=== PATIENT | male | born 1970 | race Caucasian/White ===

== ENCOUNTER 2018-03-31 16:03 | Emergency (ER) | payer SELFPAY ==
[~2018-03-31] VITALS: Ht 175.3 cm; Wt 152.4 kg
[2018-03-31] MEDS ORDERED: IV NORMAL SALINE 1,000ML 1,000 ML IV ONE (16:30)
[2018-03-31 16:41] LABS: BASO # 0.1 x10^3/uL (0.0-0.2); BASO % 1 % (0-3); EOS # 0.5 x10^3/uL (0.0-0.7); EOS % 5 % (0-3); HEMATOCRIT 42.1 % (39.0-53.0); HEMOGLOBIN 14.1 g/dL (13.0-17.5); LYMPH # 3.2 x10^3/uL (1.0-4.8); LYMPH % 27 % (24-48); MEAN CORPUSCULAR HEMOGLOBIN 28 pg (25-35); MEAN CORPUSCULAR HGB CONC 34 g/dL (31-37); MEAN CORPUSCULAR VOLUME 84 fL (79-100); MONO # 0.7 x10^3/uL (0.0-1.1); MONO % 6 % (0-9); NEUT # 7.3 x10^3uL (1.8-7.7); NEUT % 61 % (31-73); PLATELET COUNT 262 x10^3/uL (140-400); RED BLOOD COUNT 4.98 x10^6/uL (4.30-5.70); RED CELL DISTRIBUTION WIDTH 13.7 % (11.5-14.5); WHITE BLOOD COUNT 11.8 x10^3/uL (4.0-11.0)
--- NOTE | 2018-03-31 16:43 | EKG ---
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
[2018-03-31 16:51] LABS: ALBUMIN 3.3 g/dL (3.4-5.0); ALBUMIN/GLOBULIN RATIO 0.9 (1.0-1.7); CALCIUM 8.8 mg/dL (8.5-10.1); GFR 80.8; POTASSIUM 4.1 mmol/L (3.5-5.1); TOTAL BILIRUBIN 0.3 mg/dL (0.2-1.0); TOTAL PROTEIN 6.8 g/dL (6.4-8.2)
--- NOTE | 2018-03-31 17:26 | ED.ADGEN ---
Past History Past Medical History: Diabetes, GERD, Other Past Surgical History: Other Alcohol Use: Occasionally Drug Use: None Adult General Chief Complaint Chief Complaint Dizziness HPI HPI Patient is a 47-year-old male with history of type 2 diabetes and diabetic neuropathy who presents with dizziness and difficulty with balance. Patient reports subtle blurring of vision. Symptom onset was morning upon waking. Patient denies headache, loss of visual mary, slurred speech, focal extremity weakness or loss of sensation. No chest pain shortness of breath palpitations. No fever chills, nausea vomiting or sweats. No vomiting or diarrhea. Patient states blood sugars have been elevated more than normal. Patient takes metformin and glipizide. He states his blood sugars are typically in the 150- 200 range. Today's blood sugars were in the 200 low 300 range. Patient took an additional dose of metformin prior to ED arrival. Patient states he started on gabapentin in the past 10 days and I treated to a full dose 3 days ago. Denies drugs and alcohol. [] Review of Systems Review of Systems ROS as per HPI. [] All other systems were reviewed and found to be within normal limits, except as documented in this note. Current Medications Current Medications Current Medications Medications (Trade) Dose Ordered Sig/Peg Start Time Stop Time Status Last Admin Dose Admin Sodium Chloride 1,000 ml @ 1,000 mls/hr 1X ONCE 03/31/18 16:30 03/31/18 17:29 03/31/18 16:31 1,000 MLS/HR Allergies Allergies Allergies Coded Allergies Type Severity Reaction Last Updated Verified No Known Drug Allergies 08/20/17 No Physical Exam Physical Exam Constitutional: Well developed, well nourished, no acute distress, non-toxic appearance. [] HENT: Normocephalic, atraumatic, bilateral external ears normal, oropharynx moist, nose normal. [] Eyes: PERRLA, EOMI. [] Neck: Normal range of motion, no tenderness, supple, no stridor. [] Cardiovascular:Heart rate regular rhythm, no murmur [] Lungs & Thorax: Bilateral breath sounds clear to auscultation [] Abdomen: Bowel sounds normal, soft, no tenderness. [] Skin: Warm, dry. [] Back: No tenderness. [] Extremities: No tenderness. [] Neurologic: Alert and oriented X 3, normal motor function, normal sensory function, no focal deficits noted. [] Psychologic: Affect normal, judgement normal, mood normal. [] Current Patient Data Vital Signs Vital Signs Date Time Temp Pulse Resp B/P (MAP) Pulse Ox O2 Delivery O2 Flow Rate FiO2 03/31/18 17:12 88 18 125/88 (100) 98 Room Air 03/31/18 16:05 97.6 Lab Results Laboratory Tests Test 03/31/18 16:11 03/31/18 16:27 Glucose (Fingerstick) 263 mg/dL (70-99) H White Blood Count 11.8 x10^3/uL (4.0-11.0) H Red Blood Count 4.98 x10^6/uL (4.30-5.70) Hemoglobin 14.1 g/dL (13.0-17.5) Hematocrit 42.1 % (39.0-53.0) Mean Corpuscular Volume 84 fL (79-100) Mean Corpuscular Hemoglobin 28 pg (25-35) Mean Corpuscular Hemoglobin Concent 34 g/dL (31-37) Red Cell Distribution Width 13.7 % (11.5-14.5) Platelet Count 262 x10^3/uL (140-400) Neutrophils (%) (Auto) 61 % (31-73) Lymphocytes (%) (Auto) 27 % (24-48) Monocytes (%) (Auto) 6 % (0-9) Eosinophils (%) (Auto) 5 % (0-3) H Basophils (%) (Auto) 1 % (0-3) Neutrophils # (Auto) 7.3 x10^3uL (1.8-7.7) Lymphocytes # (Auto) 3.2 x10^3/uL (1.0-4.8) Monocytes # (Auto) 0.7 x10^3/uL (0.0-1.1) Eosinophils # (Auto) 0.5 x10^3/uL (0.0-0.7) Basophils # (Auto) 0.1 x10^3/uL (0.0-0.2) Sodium Level 139 mmol/L (136-145) Potassium Level 4.1 mmol/L (3.5-5.1) Chloride Level 101 mmol/L (98-107) Carbon Dioxide Level 25 mmol/L (21-32) Anion Gap 13 (6-14) Blood Urea Nitrogen 14 mg/dL (8-26) Creatinine 1.0 mg/dL (0.7-1.3) Estimated GFR (Cockcroft-Gault) 80.8 BUN/Creatinine Ratio 14 (6-20) Glucose Level 266 mg/dL (70-99) H Calcium Level 8.8 mg/dL (8.5-10.1) Magnesium Level 1.7 mg/dL (1.8-2.4) L Total Bilirubin 0.3 mg/dL (0.2-1.0) Aspartate Amino Transferase (AST) 14 U/L (15-37) L Alanine Aminotransferase (ALT) 33 U/L (16-63) Alkaline Phosphatase 125 U/L (46-116) H Troponin I Quantitative < 0.017 ng/mL (0-0.055) Total Protein 6.8 g/dL (6.4-8.2) Albumin 3.3 g/dL (3.4-5.0) L Albumin/Globulin Ratio 0.9 (1.0-1.7) L EKG EKG [EKG: Normal sinus rhythm, no acute ST-T wave changes.] Radiology/Procedures Radiology/Procedures [] Course & Med Decision Making Course & Med Decision Making Pertinent Labs and Imaging studies reviewed. (See chart for details) [No focal neurologic deficits. Vital signs are stable. IV fluids given. Blood sugar 266. Suspect symptoms are rated medication and recent increase in gabapentin. Recommend tapering/discontinuing gabapentin and following up with PCP for further evaluation. Return precautions reviewed.] Final Impression Final Impression [1. Dizziness 2. Hyperglycemia 3. Adverse drug reaction ] Dragperfecto Disclaimer Dragon Disclaimer This electronic medical record was generated, in whole or in part, using a voice recognition dictation system. ANNALISE ASTUDILLO DO March 31, 2018 17:26
[2018-03-31 17:52] VITALS: BP 136/81
[2018-03-31 17:52] LABS: BILIRUBIN,URINE NEG (NEG); CLARITY,URINE CLEAR; COLOR,URINE YELLOW; GLUCOSE,URINE 250 mg/dL (NEG); NITRITE,URINE NEG (NEG); UROBILINOGEN,URINE 0.2 mg/dL (0.2 mg/dL)
== END 2018-03-31 17:56 | disposition home or self-care (01) ==
LOC: ER 16:03
DX: E11.65 Type 2 diabetes mellitus with hyperglycemia (principal); T38.3X5A Adverse effect of insulin and oral hypoglycemic [antidiabetic] drugs, initial encounter; E11.40 Type 2 diabetes mellitus with diabetic neuropathy, unspecified; K21.9 Gastro-esophageal reflux disease without esophagitis; Y92.89 Other specified places as the place of occurrence of the external cause
CPT/HCPCS: 36415; 80053; 81003; 82947; 83735; 84484; 85025; 93005; 96360; 99285-25; J7030

== ENCOUNTER → 2018-05-17 | Outpatient (CLI) | payer OTHER ==
--- NOTE | 2018-05-17 10:19 | RAD ---
Lumbar spine, 3 views, 05/17/2018: HISTORY: Low back pain radiating into both legs The lumbar vertebral heights and disc spaces are well-maintained. There are mild scattered marginal spurs. There is moderate spurring in the lower thoracic spine. No fracture or dislocation is identified. Tiny radiopacities projected over the renal regions suggests small intrarenal calculi. IMPRESSION: 1. Mild scattered degenerative changes. 2. No acute lumbar spine abnormality is detected. Electronically signed by: Diaz Bone MD (05/17/2018 10:16 AM) [facility]
== END | disposition home or self-care (01) ==
LOC: DXRAD 09:13
PROVIDERS: ATTEND Internal Medicine Infectious Disease
DX: M54.5 Low back pain (principal); E11.65 Type 2 diabetes mellitus with hyperglycemia; K21.9 Gastro-esophageal reflux disease without esophagitis
CPT/HCPCS: 72100

== ENCOUNTER 2018-07-11 10:38 | Emergency (ER) | payer MEDICAID, OTHER ==
[~2018-07-11] VITALS: Ht 175.3 cm; Wt 154.2 kg
[2018-07-11 10:57] VITALS: BP 145/95
--- NOTE | 2018-07-11 11:17 | PHYS DOC ---
Past History Past Medical History: Diabetes, GERD Past Surgical History: Other Alcohol Use: None Drug Use: None Adult General Chief Complaint Chief Complaint: EARACHE/EAR PAIN HPI HPI She is a 47-year-old male who presents to the emergency department for evaluation. He has had left-sided ear pain for the past week or so. He states that he initially had some bleeding and drainage out of his ear. He saw his primary care provider, who prescribed eardrops, the patient is uncertain which ones, and they were brought to the local [facility] pharmacy but they have been on back order, so the patient has not received any medication. He states his ear pain is worsened. He has not had any fevers, and has not had a headache. He has had decreased hearing out of his left ear. He is also developed some mild nasal congestion and a cough over the past few days. Palpation of his left ear seems to worsen his pain. He denies any shortness of breath, chest pain, myalgias, fever, denies a global headache, and denies any neck pain or stiffness. His mental status has been normal. There are no alleviating, or exacerbating factors to his symptoms, except as otherwise noted. Review of Systems Review of Systems Constitutional: Denies fever or chills [] Eyes: Denies change in visual acuity, redness, or eye pain [] HENT: Denies sore throat [] Respiratory: Denies or shortness of breath [] Cardiovascular: The patient denies any shortness of breath, chest pain, palpitations, or orthopnea [] GI: Denies abdominal pain, nausea, vomiting, bloody stools or diarrhea [] : Denies dysuria or hematuria [] Musculoskeletal: Denies back pain or joint pain [] Integument: Denies rash or skin lesions [] Neurologic: Denies headache, focal weakness or sensory changes [] Endocrine: Denies polyuria or polydipsia [] Allergies Allergies Allergies Coded Allergies Type Severity Reaction Last Updated Verified No Known Drug Allergies 08/20/17 No Physical Exam Physical Exam PHYSICAL EXAM: CONSTITUTIONAL: Well developed, well nourished HEAD: normocephalic, atraumatic EENT: PERRL, EOMI. Conjunctivae normal color, sclerae non-icteric; moist mucous membranes. The right external auditory canal and tympanic membrane are normal. The left tympanic membrane is edematous, to the point that an otoscope is unable to be inserted in the tympanic membrane is unable to be visualized. There is tragal tenderness to palpation. There is no visible abnormalities of the skin of the auricle, and there is no mastoid tenderness to palpation. NECK: Supple, non-tender; no meningismus. LUNGS: Lungs CTA, breathing even and unlabored. Normal air movement. HEART: Regular rate and rhythm, no murmur CHEST: No deformity; non-tender ABDOMEN: The abdomen is soft, and non-tender, no masses or bruits. EXTREM: Normal ROM; no deformity, no calf tenderness. Normal pulses palpable in all extremities. There is no pedal edema. SKIN: No rash; no diaphoresis NEURO: Alert; normal speech and cognition; CN's grossly intact; strength grossly intact without focal deficit. BACK: No CVA TTP. Current Patient Data Vital Signs Vital Signs Date Time Temp Pulse Resp B/P (MAP) Pulse Ox O2 Delivery O2 Flow Rate FiO2 07/11/18 10:57 98.2 92 22 97 Room Air Lab Results Laboratory Tests Test 07/11/18 11:05 Glucose (Fingerstick) 156 mg/dL EKG EKG [] Radiology/Procedures Radiology/Procedures [] Course & Med Decision Making Course & Med Decision Making The patient be given an additional prescription for otic drops as well as oral antibiotics to cover for the possibility of otitis media due to the upper respiratory symptoms and inability to visualize the left tympanic membrane. I instructed the patient to bring the prescription to a different pharmacy, and less his local pharmacy has the medication on hand, so he can begin taking the medication today. We discussed the use of [id number] analgesics and return precautions. The patient will be given hand written prescriptions for Cortisporin Otic solution, and clindamycin 300 mg tablets, 3 times a day for 10 days. Dragon Disclaimer Dragon Disclaimer This electronic medical record was generated, in whole or in part, using a voice recognition dictation system. Departure Departure: Impression: Primary Impression: Otitis externa Disposition: 01 HOME, SELF-CARE Condition: STABLE Referrals: FERNANDO VIVEROS MD (PCP) Patient Instructions: Otitis Externa LAUREL JARVIS MD Jul 11, 2018 11:17
== END 2018-07-11 11:36 | disposition home or self-care (01) ==
LOC: ER 10:38
DX: H60.92 Unspecified otitis externa, left ear (principal); E11.9 Type 2 diabetes mellitus without complications; K21.9 Gastro-esophageal reflux disease without esophagitis
CPT/HCPCS: 82947; 99283

== ENCOUNTER 2018-11-06 05:11 | Emergency (ER) | payer MEDICAID, OTHER ==
[~2018-11-06] VITALS: Ht 175.3 cm; Wt 152.0 kg
--- NOTE | 2018-11-06 05:23 | PHYS DOC ---
Past History Past Medical History: Diabetes, GERD Past Surgical History: Other Alcohol Use: None Drug Use: None Adult General Chief Complaint Chief Complaint: Right ankle pain/swelling HPI HPI 48-year-old male presents with report of right ankle pain and swelling which occurred at approximately 2200 last night. Patient reports he went to step on a wooden pallet and missed the board and instead stepped between striking his ankle on the sides of the palate. Patient reports significant swelling and pain primarily to the lateral aspect. Reports pain with movement. Patient did sustain some abrasions to his lateral aspect of ankle and to his heel. Denies other injury. Reports last tetanus booster greater than 5 years ago. Reports taking ibuprofen approximately 1 hour prior to arrival with limited relief. Review of Systems Review of Systems Constitutional: Denies fever or chills [] Musculoskeletal: Reports right ankle pain Integument: Denies laceration; reports ankle abrasions Neurologic: Denies numbness or tingling Complete systems were reviewed and found to be within normal limits, except as documented in this note. Allergies Allergies Allergies Coded Allergies Type Severity Reaction Last Updated Verified No Known Drug Allergies 08/20/17 No Physical Exam Physical Exam Constitutional: Well developed, well nourished, no acute distress, non-toxic appearance. [] HENT: Normocephalic, atraumatic Eyes: Conjunctiva normal, no discharge. [] Neck: Normal range of motion, supple Cardiovascular: PT/DP on right +2, cap refill less than 2 seconds Lungs & Thorax: No respiratory distress Skin: Warm, dry, 2 cm x 2 cm abrasion noted to lateral malleolus on right ankle , 1 cm abrasion noted to right calcaneus Extremities: Right ankle with negative drawer sign, significant swelling and tenderness to lateral malleolus, no proximal fibular tenderness or tibial plateau tenderness Neurologic: Alert and oriented X 3, no focal deficits noted. [] Psychologic: Affect normal, judgement normal, mood normal. [] EKG EKG [] Radiology/Procedures Radiology/Procedures Right ankle 3 views (preliminary interpretation by ED physician): No acute fracture or dislocation. Course & Med Decision Making Course & Med Decision Making Pertinent Imaging studies reviewed. (See chart for details) Patient presents with right lateral ankle swelling and tenderness which occurred last night. Limb neurovascularly intact. Pain addressed. Ice applied. X -ray obtained without acute fracture or dislocation. Ulices wrap and ankle air splint applied. Crutches provided. Patient stable for discharge with outpatient follow-up with PCP/orthopedics. Orthopedic referral provided. Discussed findings and plan with patient and family, who acknowledge understanding and agreement. Bhavna Disclaimer Bhavna Disclaimer This electronic medical record was generated, in whole or in part, using a voice recognition dictation system. Splinting Splinting : Location: Right ankle Pre-Made Type: aircast (and ULICES bandage) Pre-Proc Neuro Vasc Exam: normal Post-Proc Neuro Vasc Exam: normal, unchanged from pre-exam Departure Departure: Impression: Primary Impression: Ankle sprain Additional Impression: Abrasion Disposition: HOME, SELF-CARE Condition: STABLE Referrals: FERNANDO VIVEROS MD (PCP) DEVORA ARRIAGA MD Patient Instructions: Abrasion, [id number], Ankle Sprain, [id number], Crutch Use, [id number] Scripts Hydrocodone Bit/Acetaminophen (NORCO 5-325 TABLET) 1 Each Tablet 1 TAB PO Q6HRS PRN for PAIN, #10 TAB Prov: GIOVANY ROBERTS DO 11/06/18 Problem Qualifiers Primary Impression: Ankle sprain Encounter type: initial encounter Involved ligament of ankle: unspecified ligament Laterality: right Qualified Codes: S93.401A - Sprain of unspecified ligament of right ankle, initial encounter GIOVANY ROBERTS DO Nov 06, 2018 05:23
[2018-11-06] MEDS ORDERED: HYDR-3165 PO (05:52)
[2018-11-06] MEDS ORDERED: HYDROcodone/APAP 5/325MG 1 TAB TABLET ONE (05:52)
[2018-11-06] MEDS ORDERED: DIPHTH,PERTUSS(ACELL),TET TOX 0.5 ML DISP.SYRIN. VAX IM ONE ×2 (05:52→06:00)
[2018-11-06] MEDS ORDERED: NEOMY/BACITR/POLYMYXIN OINT PACKET. TP ONE ×2 (05:52→06:00)
[2018-11-06] MEDS ORDERED: HYDROcodone/APAP 5/325MG 1 TAB TABLET PO ONE (06:00)
[2018-11-06 06:25] VITALS: BP 122/60
--- NOTE | 2018-11-06 07:34 | RAD ---
Examination: ANKLE RIGHT 3V History: Injury to right ankle last night. Stepped in between boards of a pallet causing laceration, pain and swelling to right lateral malleolus. Comparison/Correlation: None Findings: Total 3 images of the right ankle were obtained. Significant soft tissue swelling anterior to the ankle is present. Soft tissue swelling about the lateral malleolus is also present. No acute fracture or bony destruction. Moderate-sized calcaneal spur is present. No radiopaque foreign body. Impression: Soft tissue swelling. Electronically signed by: Kaushik Beyer MD (11/06/2018 7:30 AM) [facility] [place]
== END 2018-11-06 06:26 | disposition home or self-care (01) ==
LOC: ER 05:11
DX: S93.401A Sprain of unspecified ligament of right ankle, initial encounter (principal); E11.9 Type 2 diabetes mellitus without complications; K21.9 Gastro-esophageal reflux disease without esophagitis; W22.8XXA Striking against or struck by other objects, initial encounter; Y93.89 Activity, other specified; Y92.89 Other specified places as the place of occurrence of the external cause; Y99.8 Other external cause status
CPT/HCPCS: 73610; 90471; 90715; 99284

== ENCOUNTER 2020-10-18 10:57 | Emergency (ER) | payer OTHER ==
[~2020-10-18] VITALS: Ht 177.8 cm; Wt 126.0 kg
[~2020-10-18 10:57] MED LIST: HYDR-3165 PO
[2020-10-18 11:00] VITALS: BP 137/82
--- NOTE | 2020-10-18 11:14 | PHYS DOC ---
Past History Past Medical History: Diabetes, GERD, Hypertension, Kidney Stones, Other Past Surgical History: Other Alcohol Use: Occasionally Drug Use: Marijuana General Adult EDM: Chief Complaint: ANXIETY/PANIC ATTACK HPI: HPI: 50-year-old male past medical history significant for diabetes, htn and GERD presents to the ED with complaints of Review of Systems: Review of Systems: Constitutional: Denies fever or chills Eyes: Denies change in visual acuity HENT: Denies nasal congestion or sore throat Respiratory: Denies cough or shortness of breath Cardiovascular: Denies chest pain or edema GI: Denies abdominal pain, nausea, vomiting, bloody stools or diarrhea : Denies dysuria Musculoskeletal: Denies back pain or joint pain Integument: Denies rash Neurologic: Denies headache, focal weakness or sensory changes Endocrine: Denies polyuria or polydipsia Lymphatic: Denies swollen glands Psychiatric: Denies depression or anxiety Allergies: Allergies: Allergies Coded Allergies Type Severity Reaction Last Updated Verified lisinopril Allergy Intermediate Hives 11/06/18 Yes Physical Exam: PE: Constitutional: Well developed, well nourished, no acute distress, non-toxic appearance. HENT: Normocephalic, atraumatic, Eyes: EOMI, conjunctiva normal, no discharge. Neck: Normal range of motion, supple, Cardiovascular: S1/2 present, regular rhythm Lungs & Thorax: Speaking in full sentences, bilateral equal chest rise, no tachypnea or increased work of breathing Abdomen: soft, no tenderness, Skin: Warm, dry, no erythema, no rash. [] Back: No tenderness, no CVA tenderness. [] Extremities: No tenderness, no cyanosis, no edema Neurologic: Alert and oriented X 3, normal motor function, normal sensory function, no focal deficits noted. [] Psychologic: Affect normal, judgement normal, mood normal. [] EKG: EKG: Sinus rhythm at 68 bpm, left axis deviation, normal intervals, no T wave inversions, no ST elevations or ST depressions Radiology/Procedures: Radiology/Procedures: [] Heart Score: HEART Score for Chest Pain: HEART Score for Chest Pain Response (Comments) Value History Slighlty/Non-Suspicious 0 ECG Normal 0 Age >45 - < 65 1 Risk Factors 1 or 2 Risk Factors 1 Troponin < Normal Limit 0 Total 2 Risk Factors: Risk Factors: DM, Current or recent (<one month) smoker, HTN, HLP, family history of CAD, obesity. Risk Scores: Score 0 - 3: 2.5% MACE over next 6 weeks - Discharge Home Score 4 - 6: 20.3% MACE over next 6 weeks - Admit for Clinical Observation Score 7 - 10: 72.7% MACE over next 6 weeks - Early Invasive Strategies Course & Med Decision Making: Course & Med Decision Making Pertinent Labs and Imaging studies reviewed. (See chart for details) Strict ED return precautions were given for []. Encouraged urgent outpatient follow-up with PMD and [specialist]. Life-threatening processes were considered but are low suspicion at this time, given history and physical exam. Pt was educated on all prescription medications and adverse effects. All patient's questions were answered and pt was stable at time of discharge. Life/limb-threatening differential includes but is not limited to, acute myocardial infarction, aortic dissection, congestive heart failure, esophageal injury including rupture, surgical abdomen, arrhythmia, cardiomyopathy, myocarditis, pericarditis, peptic ulcer disease, pneumomediastinum, pneumonia, pneumothorax, pulmonary embolus, unstable angina, rib fracture, contusion, pericardial tamponade or effusion, pulmonary contusion I spoken with the patient and her caregivers. I explained the patient's condition, diagnoses and treatment plan based on the information available to me at this time. I have answered the patient and her caregiver's questions and addressed any concerns. The patient and her caregivers have a good understanding of patient's diagnosis, condition and treatment plan as can be expected at this point. Vital signs have been stable. Patient's condition is stable and appropriate for discharge from the emergency department. Patient will pursue further outpatient evaluation with primary care physician or other designated or consulting physician as outlined in the discharge instructions. The patient and/or caregivers are agreeable to this plan of care and follow-up instructions have been explained in detail. The patient and/or caregivers have received these instructions in written form and have expressed an understanding of the discharge instructions. The patient and/or caregivers are aware that any significant change of condition or worsening of symptoms should prompt immediate return to this or the closest emergency department or call to 911. Bhavna Disclaimer: Bhavna Disclaimer: This electronic medical record was generated, in whole or in part, using a voice recognition dictation system. Departure Departure: Impression: Primary Impression: Anxiety and depression Additional Impression: Panic attacks Disposition: 01 DC HOME SELF CARE/HOMELESS Condition: STABLE Referrals: FERNANDO VIVEROS MD (PCP) Patient Instructions: Anxiety and Panic Attacks, Chest Pain (Nonspecific) Additional Instructions: EMERGENCY DEPARTMENT GENERAL DISCHARGE INSTRUCTIONS Thank you for coming to [facility] (ED) today and trusting us with you care. We trust that you had a positivie experience in our Emergency Department. If you wish to speak to the department management, you may call the director at [phone]. YOUR FOLLOW UP INSTRUCTIONS ARE FOLLOWS: 1. Do you have a private Doctor? If you do not have a private doctor, please ask for a resource list of physicians or clinics that may be able to assist you with follow up care. 2. The Emergency Physician has interpreted your x-rays. The X-Ray specialist will also review them. If there is a change in the findings, you will be notified in 48 hours when at all possible. 3. A lab test or culture has been done, your results will be reviewed and you will be notified if you need a change in treatment. ADDITIONAL INSTRUCTIONS AND INFORMATION: 1. Your care today has been supervised by a physician who is specially trained in emergency care. Many problems require more than one evaluation for a complete diagnosis and treatment. We recommend that you schedule your follow up appointment as recommended to ensure complete treatment of you illness or injury. If you are unable to obtain follow up care and continue to have a problem, or if your condition worsens, we recommend that you return to the ED. 2. We are not able to safely determine your condition over the phone nor are we able to give sound medical advice over the phone. For these safety reasons, if you call for medical advice we will ask you to come to the ED for further evaluation. 3. If you have any questions regarding these discharge instructions please call the ED at [phone]. SAFETY INFORMATION: In the interest of safety, wellness, and injury prevention; we encourage you to wear your sealbelt, if you smoke; quite smoking, and we encourage family to use a protective helmet for bicycling and other sporting events that present an increased risk for head injury. IF YOUR SYMPTOMS WORSEN OR NEW SYMPTOMS DEVELOP, OR YOU HAVE CONCERNS ABOUT YOUR CONDITION; OR IF YOUR CONDITION WORSENS WHILE YOU ARE WAITING FOR YOUR FOLLOW UP APPOINTMENT; EITHER CONTACT YOUR PRIMARY CARE DOCTOR, THE PHYSICIAN WHOSE NAME AND NUMBER YOU WERE GIVEN, OR RETURN TO THE ED IMMEDIATELY. Scripts Hydroxyzine Hcl (HYDROXYZINE HCL) 25 Mg Tablet 1 TAB PO PRN BID PRN for ANXIETY / AGITATION, #20 TAB 0 Refills Be careful as this medication may make you mildly tired. I recommend not driving on this medication or operating heavy machinery. Prov: JAMESON DUMONT DO 10/18/20 JAMESON DUMONT DO Oct 18, 2020 11:14
[2020-10-18] MEDS ORDERED: ALPRAZolam 0.25 MG TABLET PO ONE (12:00)
[2020-10-18 12:38] LABS: BASO # 0.1 x10^3/uL (0.0-0.2); BASO % 1 % (0-3); EOS # 0.5 x10^3/uL (0.0-0.7); EOS % 4 % (0-3); HEMOGLOBIN 15.4 g/dL (13.0-17.5); LYMPH # 2.5 x10^3/uL (1.0-4.8); LYMPH % 18 % (24-48); MEAN CORPUSCULAR HEMOGLOBIN 30 pg (25-35); MEAN CORPUSCULAR HGB CONC 33 g/dL (31-37); MEAN CORPUSCULAR VOLUME 92 fL (79-100); MONO # 0.7 x10^3/uL (0.0-1.1); MONO % 5 % (0-9); NEUT # 10.2 x10^3uL (1.8-7.7); NEUT % 73 % (31-73); PLATELET COUNT 240 x10^3/uL (140-400); RED BLOOD COUNT 5.13 x10^6/uL (4.30-5.70); RED CELL DISTRIBUTION WIDTH 14.2 % (11.5-14.5); WHITE BLOOD COUNT 13.9 x10^3/uL (4.0-11.0)
[2020-10-18 12:39] LABS: CALCIUM 9.4 mg/dL (8.5-10.1); CREATININE 0.8 mg/dL (0.7-1.3); GFR 103.2; POTASSIUM 4.3 mmol/L (3.5-5.1)
[2020-10-18] MEDS ORDERED: HYDR25TA PO (13:32)
--- NOTE | 2020-10-18 13:34 | RAD ---
INDICATION: Reason: cp / Spl. Instructions: / History: COMPARISON: September 2009 FINDINGS: 2 view of chest obtained. No focal airspace consolidation. Cardiac silhouette is unremarkable. No gross osseous destructive les ion IMPRESSION: * No focal airspace consolidation or edema. Electronically signed by: Shaheed Reyes MD (10/18/2020 12:29 PM) [id number]
--- NOTE | 2020-10-18 13:34 | EKG ---
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
== END 2020-10-18 13:38 | disposition home or self-care (01) ==
LOC: ER 10:57
DX: F41.9 Anxiety disorder, unspecified (principal); F32.9 Major depressive disorder, single episode, unspecified; E11.9 Type 2 diabetes mellitus without complications; K21.9 Gastro-esophageal reflux disease without esophagitis; I10 Essential (primary) hypertension; Z87.442 Personal history of urinary calculi; Z88.8 Allergy status to other drugs, medicaments and biological substances
CPT/HCPCS: 36415; 71046; 80048; 84484; 85025; 93005; 99285

== ENCOUNTER 2021-12-16 06:42 | Emergency (ER) | payer SELFPAY ==
[~2021-12-16] VITALS: Ht 170.2 cm; Wt 132.8 kg
[~2021-12-16 06:42] MED LIST changes: +HYDR25TA PO
--- NOTE | 2021-12-16 07:49 | PHYS DOC ---
Past History Past Medical History: Anxiety, Diabetes, GERD, Hypertension, Kidney Stones, Other Additional Past Medical Histor: COMANCHE Past Surgical History: Other Additional Past Surgical Histo: WOUND VAC, EAR SURGERY, KIDNEY STONES. Alcohol Use: None Drug Use: Marijuana Adult General Chief Complaint Chief Complaint: CHEST PAIN HPI HPI Patient is a 51-year-old male presenting via POV for chest tightness. Reports symptom onset was yesterday evening while at rest, states he felt like he had a "gas bubble" in his chest that was relieved after taking x2 gas pills. States he was able to sleep without issue but after waking up, he reported recurrence of symptoms with associated chest tightness. Reports that physical exertion made worse, he got ready for work, walked 3 minutes to work and while performing daily duties on the job he got winded, diaphoretic and nauseous with increased chest tightness. This prompted him to call and subsequently 911 who advised patient to come in for evaluation. He has no personal history of CAD but does disclose he has numerous comorbid conditions which he admits poor medication compliance in outpatient setting for. Admits ongoing marijuana and tobacco abuse, no alcohol or other illicit drug use. No history of early cardiac disease in family. Does disclose he has had approximately 1 week of upper respiratory symptoms and is unvaccinated against COVID-19 Review of Systems Review of Systems Fourteen body systems of review of systems have been reviewed. See HPI for pertinent positives and negative responses, other cub[place] all other systems are negative, non-pertinent or non-contributory Allergies Allergies Allergies Coded Allergies Type Severity Reaction Last Updated Verified lisinopril Allergy Intermediate Hives 10/18/20 Yes Physical Exam Physical Exam Constitutional: Well developed, well nourished, no acute distress, non-toxic appearance. HENT: Normocephalic, atraumatic, bilateral external ears normal, oropharynx moist with erythematous posterior oropharynx with postnasal drip present, no oral exudates, nose normal. Eyes: PERRLA, EOMI, conjunctiva normal, no discharge. Neck: Normal range of motion, no tenderness, supple, no stridor. Cardiovascular: Heart rate regular, sinus rhythm, no murmurs rubs or gallops Lungs & Thorax: Bilateral breath sounds clear to auscultation Abdomen: Bowel sounds normal, soft, no tenderness, no masses, no pulsatile masses. Nonsurgical abdomen, no peritoneal signs Skin: Warm, dry, no erythema, no rash. Back: No tenderness, no CVA tenderness. Extremities: No tenderness, no cyanosis, no clubbing, ROM intact, no edema. Neurologic: Alert and oriented X 3, grossly normal motor & sensory function, no focal deficits noted. Psychologic: Anxious affect and mood Current Patient Data Vital Signs Vital Signs Date Time Temp Pulse Resp B/P (MAP) Pulse Ox O2 Delivery O2 Flow Rate FiO2 12/16/21 07:39 98.0 70 18 139/87 (104) 97 Vital Signs Date Time Temp Pulse Resp B/P (MAP) Pulse Ox O2 Delivery O2 Flow Rate FiO2 12/16/21 08:06 70 134/74 12/16/21 07:39 98.0 18 97 Lab Results Laboratory Tests Test 12/16/21 08:12 White Blood Count 9.3 x10^3/uL Red Blood Count 4.59 x10^6/uL Hemoglobin 14.0 g/dL Hematocrit 41.7 % Mean Corpuscular Volume 91 fL Mean Corpuscular Hemoglobin 31 pg Mean Corpuscular Hemoglobin Concent 34 g/dL Red Cell Distribution Width 13.6 % Platelet Count 218 x10^3/uL Neutrophils (%) (Auto) 67 % Lymphocytes (%) (Auto) 23 % Monocytes (%) (Auto) 6 % Eosinophils (%) (Auto) 4 % Basophils (%) (Auto) 1 % Neutrophils # (Auto) 6.2 x10^3uL Lymphocytes # (Auto) 2.1 x10^3/uL Monocytes # (Auto) 0.5 x10^3/uL Eosinophils # (Auto) 0.4 x10^3/uL Basophils # (Auto) 0.1 x10^3/uL Sodium Level 140 mmol/L Potassium Level 4.3 mmol/L Chloride Level 104 mmol/L Carbon Dioxide Level 22 mmol/L Anion Gap 14 Blood Urea Nitrogen 21 mg/dL Creatinine 0.8 mg/dL Estimated GFR (Cockcroft-Gault) 102.7 Glucose Level 174 mg/dL Calcium Level 9.0 mg/dL Troponin I High Sensitivity 19 ng/L PS-Nmm-R-Type Natriuretic Peptide 55 pg/mL Influenza Type A (Rapid) Negative Influenza Type B (Rapid) Negative SARS-CoV-2 Antigen (Rapid) Negative Current Medications Medications (Trade) Dose Ordered Sig/Peg Route PRN Reason Start Time Stop Time Status Last Admin Dose Admin Aspirin (Aspirin Chewable) 324 mg 1X ONCE PO 12/16/21 07:45 12/16/21 07:55 DC 12/16/21 08:04 Nitroglycerin (Nitrostat) 0.4 mg PRN Q5MIN PRN SL CP RATING > 1/10 12/16/21 07:45 12/17/21 07:44 12/16/21 08:06 EKG EKG EKG ordered and interpreted by myself at 0800 hrs. is sinus rhythm at 60 bpm, unremarkable intervals, no axis deviation, T wave inversion noted in lead III otherwise no acute ischemic findings, no STEMI Radiology/Procedures Radiology/Procedures EXAMINATION: Chest radiograph. VIEWS: 1 COMPARISON: 10/18/2020 INDICATION:51 years, Male, shortness of breath. FINDINGS: Normal cardiomediastinal silhouette. No focal consolidation. No pleural effusion or pneumothorax. No acute osseous process. IMPRESSION: No acute cardiopulmonary process. Electronically signed by: Cresencio Trejo MD (12/16/2021 8:00 AM) [id number] Heart Score C/O Chest Pain: Yes HEART Score for Chest Pain: HEART Score for Chest Pain Response (Comments) Value History Moderately Suspicious 1 ECG Normal 0 Age >45 - < 65 1 Risk Factors >3 Risk Factors or Hx CAD 2 Troponin < Normal Limit 0 Total 4 Risk Factors: Risk Factors: DM, Current or recent (<one month) smoker, HTN, HLP, family history of CAD, obesity. Risk Scores: Risk Factors: DM, Current or recent (<one month) smoker, HTN, HLP, family history of CAD, obesity. Course & Med Decision Making Course & Med Decision Making ABCs unremarkable HPI physical exam and comprehensive ER work-up nonconcerning for any emergent or surgical issues Patient suffering from upper respiratory infection with COVID-19 and influenza rapid test negative, still advised patient to self quarantine and provide supportive care practices Patient also complaining of chest pain that started greater than 12 hours prior to arrival without any concerning lab and/or diagnostic abnormalities. I reviewed heart score with patient and recommended admission, he deferred As such, patient reports having good access to PCP and could have outpatient provocative cardiac testing performed by end of week. He is aware of risks of deferring admission for cardiac observation for outpatient follow-up. Strict return precautions discussed prior to departure Bhavna Disclaimer Bhavna Disclaimer This electronic medical record was generated, in whole or in part, using a voice recognition dictation system. Departure Departure: Impression: Primary Impression: Chest pain Disposition: HOME / SELF CARE / HOMELESS Condition: STABLE Referrals: PCP,UNKNOWN (PCP) Additional Instructions: You were seen for chest pain. Your workup did not show any acute abnormalities today, but does not indicate that you do not have underlying cardiovascular disease. 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 As discussed, you would benefit from an outpatient echocardiogram and/or stress test. You should return to the ED if you develop worsening chest pain, shortness of breath, fever, a bnormal sweating, leg swelling, or any other new or concerning symptoms. Scripts Famotidine (FAMOTIDINE) 20 Mg Tablet 1 TAB PO DAILY for GERD, #30 TAB 0 Refills Prov: RAZA MERRILL DO 12/16/21 RAZA MERRILL DO Dec 16, 2021 07:49
--- NOTE | 2021-12-16 08:00 | EKG ---
[address] [address] Test Date: 2021-12-16 Test Time: 07:54:41 Pat Name: RADHA RIVERA Department: Room: Gender: M Assistant Analyst: ELLIOTT : 1970 Requested By: RAZA MERRILL Order Number: [id number] Reading MD: Measurements Intervals [place] Rate: 60 P: 0 PA: 158 QRS: 5 QRSD: 86 T: 13 QT: 384 QTc: 384 Interpretive Statements SINUS RHYTHM NORMAL ECG RI6.02 No previous ECG available for comparison
--- NOTE | 2021-12-16 08:02 | RAD ---
EXAMINATION: Chest radiograph. VIEWS: 1 COMPARISON: 10/18/2020 INDICATION:51 years, Male, shortness of breath. FINDINGS: Normal cardiomediastinal silhouette. No focal consolidation. No pleural effusion or pneumothorax. No acute osseous process. IMPRESSION: No acute cardiopulmonary process. Electronically signed by: Cresencio Trejo MD (12/16/2021 8:00 AM) [id number]
[2021-12-16] MEDS: ASPIRIN CHEWABLE 81 MG TABLET. PO ONE (08:04)
[2021-12-16] MEDS: NITROGLYCERIN SUBLINGUAL 0.4 MG BOTTLE OF 25. SL PRN (08:06)
[2021-12-16 08:29] LABS: BASO # 0.1 x10^3/uL (0.0-0.2); BASO % 1 % (0-3); EOS # 0.4 x10^3/uL (0.0-0.7); EOS % 4 % (0-3); HEMATOCRIT 41.7 % (39.0-53.0); LYMPH # 2.1 x10^3/uL (1.0-4.8); LYMPH % 23 % (24-48); MEAN CORPUSCULAR HEMOGLOBIN 31 pg (25-35); MEAN CORPUSCULAR HGB CONC 34 g/dL (31-37); MEAN CORPUSCULAR VOLUME 91 fL (79-100); MONO # 0.5 x10^3/uL (0.0-1.1); MONO % 6 % (0-9); NEUT # 6.2 x10^3uL (1.8-7.7); NEUT % 67 % (31-73); PLATELET COUNT 218 x10^3/uL (140-400); RED BLOOD COUNT 4.59 x10^6/uL (4.30-5.70); RED CELL DISTRIBUTION WIDTH 13.6 % (11.5-14.5); WHITE BLOOD COUNT 9.3 x10^3/uL (4.0-11.0)
[2021-12-16 08:37] LABS: CREATININE 0.8 mg/dL (0.7-1.3); GFR 102.7; POTASSIUM 4.3 mmol/L (3.5-5.1)
[2021-12-16 08:50] LABS: INFLUENZA A PATIENT NEGATIVE (NEGATIVE); INFLUENZA B PATIENT NEGATIVE (NEGATIVE)
[2021-12-16] MEDS ORDERED: FAMO20TA5 PO (09:31)
[2021-12-16 09:42] VITALS: BP 138/70
== END 2021-12-16 09:42 | disposition home or self-care (01) ==
LOC: ER 06:42
DX: R07.89 Other chest pain (principal); F41.9 Anxiety disorder, unspecified; E11.9 Type 2 diabetes mellitus without complications; K21.9 Gastro-esophageal reflux disease without esophagitis; I10 Essential (primary) hypertension; Z20.822 Contact with and (suspected) exposure to COVID-19; Z87.442 Personal history of urinary calculi; Z88.8 Allergy status to other drugs, medicaments and biological substances
CPT/HCPCS: 71045; 80048; 83880; 84484; 85025; 87428; 93005; 99285; C9803; U0003

== ENCOUNTER 2022-01-23 20:50 | Emergency (ER) | payer SELFPAY ==
[~2022-01-23] VITALS: Ht 175.3 cm; Wt 136.7 kg
[~2022-01-23 20:50] MED LIST changes: +FAMO20TA5 PO
--- NOTE | 2022-01-23 21:32 | RAD ---
XR CHEST 1V Clinical Indication: Reason: cp / Spl. Instructions: / History: Comparison: AP chest December 16, 2021. Findings: The cardiomediastinal silhouette is normal. Lungs are clear. There is no pneumothorax. No pleural eff usion is appreciated. No acute bone abnormality. IMPRESSION: No acute cardiopulmonary process. Electronically signed by: Miguel A Brown MD (01/23/2022 9:30 PM) [facility]
--- NOTE | 2022-01-23 21:51 | PHYS DOC ---
Past History Past Medical History: Anxiety, CAD, Diabetes, GERD, High Cholesterol, Hypertension, Kidney Stones, NV, Other Additional Past Medical Histor: [facility] (MARGOTH TERRAZAS) Past Surgical History: Other Additional Past Surgical Histo: WOUND VAC, EAR SURGERY, stent placement 01/2022 (AMRGOTH TERRAZAS) Alcohol Use: None Drug Use: None, Marijuana (MARGOTH TERRAZAS) General Adult EDM: Chief Complaint: CHEST PAIN-CARDIAC NATURE HPI: HPI: Patient is a 51 year old male with history of CAD, hypertension, high cholesterol, diabetes who presents with chest pain at rest. Patient reports he had a stent placed by Dr. Deleon at [facility] earlier this month. He was released from the hospital on 01/11/2022. Patient reports he recently went back to work for shifts that only last about 4 hours. He reports that he is exerting himself significantly during these shifts. He had resignation of left-sided chest pain with associated diaphoresis and radiation to his neck after his shifts. Today, his pain did not resolve with rest. Patient reports medication compliance with all of his home medications, which he brought to the emergency department with him. Patient does take prasugrel status post stent placement. Patient is scheduled for an echo on 02/25/2022 and follow-up with Dr. Deleon on 03/04/2022. Patient denies all other complaints including palpitations, peripheral edema, shortness of breath, cough. (MARGOTH TERRAZAS) Review of Systems: Review of Systems: 12 system ROS negative or noncontributory except as mentioned in HPI. (MARGOTH TERRAZAS) Allergies: Allergies: Allergies Coded Allergies Type Severity Reaction Last Updated Verified lisinopril Allergy Intermediate Hives 10/18/20 Yes (MARGOTH TERRAZAS) Physical Exam: PE: Constitutional: Obese, no acute distress, non-toxic appearance. HENT: Normocephalic, atraumatic, bilateral external ears normal, nose normal. Eyes: EOMI, conjunctiva normal, no discharge. Neck: Normal range of motion, no stridor, no JVD. Cardiovascular: Regular rate and rhythm. No murmurs, rubs or gallops. Lungs & Thorax: Bilateral breath sounds clear to auscultation, no increased work of breathing. Skin: Warm, dry, no erythema, no rash. Extremities: No cyanosis, no clubbing, ROM intact, no edema. Neurologic: Alert and oriented x4, steady and symmetrical upright gait, no focal deficits noted. (MARGOTH TERRAZAS) Current Patient Data: Vital Signs: VS - Last 72 Hours, by Label Date Time Temp Pulse Resp B/P (MAP) Pulse Ox O2 Delivery O2 Flow Rate FiO2 01/23/22 20:50 97.7 71 18 127/72 (90) 96 Room Air (MARGOTH TERRAZAS) EKG: EKG: EKG Interpreted by Dr. Gracia at 2109: Regular rate and rhythm 69 bpm with no ectopic beats. T wave inversion in lead III. NV 148 ms. QT 362 ms/QTc 389 ms. No STEMI. (MARGOTH TERRAZAS) Radiology/Procedures: Radiology/Procedures: PROCEDURE: CHEST AP ONLY XR CHEST 1V Clinical Indication: Reason: cp / Spl. Instructions: / History: Comparison: AP chest December 16, 2021. Findings: The cardiomediastinal silhouette is normal. Lungs are clear. There is no pneumothorax. No pleural effusion is appreciated. No acute bone abnormality. IMPRESSION: No acute cardiopulmonary process. Electronically signed by: Miguel A Brown MD (01/23/2022 9:30 PM) [facility] (MARGOTH TERRAZAS) Heart Score: C/O Chest Pain: Yes HEART Score for Chest Pain: HEART Score for Chest Pain Response (Comments) Value History Moderately Suspicious 1 ECG Nonspecific Repolarizatio 1 Age >45 - < 65 1 Risk Factors >3 Risk Factors or Hx CAD 2 Total 5 Risk Factors: Risk Factors: DM, HTN, HLD, personal hx CAD, obesity. Risk Scores: Score 0 - 3: 2.5% MACE over next 6 weeks - Discharge Home Score 4 - 6: 20.3% MACE over next 6 weeks - Admit for Clinical Observation Score 7 - 10: 72.7% MACE over next 6 weeks - Early Invasive Strategies (MARGOTH TERRAZAS) Course & Med Decision Making: Course & Med Decision Making Pertinent Labs and Imaging studies reviewed. (See chart for details) Patient is a 51-year-old male with recent stent placement who presents with chest pain that does not resolve with rest. Work-up today will consist of labs that include troponin and coag studies, EKG, chest x-ray. Patient care was transferred to Dr. Gracia while waiting lab results. Dr. Gracia received thorough handoff and will address any abnormalities. (MARGOTH TERRAZAS) Course & Med Decision Making Patient care handed off to me at checkout pending ACS work-up. Patient awake alert and oriented in no acute distress. Patient symptom-free entire time in the emergency department. Laboratory analysis not concerning. EKG and tropo nins x2, D-dimer not concerning. Chest x-ray not concerning. On reassessment patient stated he was feeling well and would prefer to be discharged home. Discussed the option of staying in the hospital for continued EKGs and troponins given his history. 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 Gave strict return precautions to the emergency department. Family grateful, verbalized understanding and agreed with plan of discharge. (RADHA GRACIA MD) Dragon Disclaimer: Dragon Disclaimer: This electronic medical record was generated, in whole or in part, using a voice recognition dictation system. (MARGOTH TERRAZAS) Departure Departure: Impression: Primary Impression: Chest pain Disposition: HOME / SELF CARE / HOMELESS Condition: STABLE Referrals: PCP,UNKNOWN (PCP) LES BARRY MD Patient Instructions: Chest Pain (Nonspecific) Additional Instructions: Thank you for coming into the emergency department tonight and allowing us to take care of you. Please read the attached information carefully go over things we discussed. Please be sure to take all of your medications as prescribed. You are given a work note for the next couple of days to allow rest and to allow you to call your [employer] first thing Wednesday as you wished to go home. As we discussed, over the next couple of days please do not do any excessive exercises or activities. Please be sure to stay well-hydrated and eat at least 3 small nutritious meals daily and take a multivitamin. Please follow-up first thing Wednesday with your [employer] to update on your ED visit and set up a follow-up as soon as possible to discuss need for further evaluation and treatment including stress test or catheterization. Please come back to the emergency department immediately with any new or concerning symptoms that we discussed. MARGOTH TERRAZAS Jan 23, 2022 21:51 RADHA GRACIA MD Jan 24, 2022 01:10
[2022-01-23 22:02] LABS: BASO # 0.1 x10^3/uL (0.0-0.2); BASO % 1 % (0-3); EOS # 0.3 x10^3/uL (0.0-0.7); EOS % 2 % (0-3); HEMATOCRIT 39.4 % (39.0-53.0); HEMOGLOBIN 12.9 g/dL (13.0-17.5); LYMPH # 4.3 x10^3/uL (1.0-4.8); LYMPH % 26 % (24-48); MEAN CORPUSCULAR HEMOGLOBIN 30 pg (25-35); MEAN CORPUSCULAR HGB CONC 33 g/dL (31-37); MEAN CORPUSCULAR VOLUME 92 fL (79-100); MONO # 0.9 x10^3/uL (0.0-1.1); MONO % 5 % (0-9); NEUT # 11.1 x10^3uL (1.8-7.7); NEUT % 67 % (31-73); PLATELET COUNT 236 x10^3/uL (140-400); RED CELL DISTRIBUTION WIDTH 13.9 % (11.5-14.5); WHITE BLOOD COUNT 16.6 x10^3/uL (4.0-11.0)
[2022-01-23 22:16] LABS: CALCIUM 8.7 mg/dL (8.5-10.1); CREATININE 0.8 mg/dL (0.7-1.3); GFR 102.7; POTASSIUM 3.9 mmol/L (3.5-5.1)
[2022-01-23 22:21] LABS: ALBUMIN 3.4 g/dL (3.4-5.0); ALBUMIN/GLOBULIN RATIO 1.1 (1.0-1.7); TOTAL BILIRUBIN 0.3 mg/dL (0.2-1.0); TOTAL PROTEIN 6.5 g/dL (6.4-8.2)
[2022-01-23] MEDS: NITROGLYCERIN SUBLINGUAL 0.4 MG BOTTLE OF 25. SL PRN ×2 (23:06→23:07)
[2022-01-24] MEDS: NITROGLYCERIN SUBLINGUAL 0.4 MG BOTTLE OF 25. SL PRN (00:54)
[2022-01-24 02:00] VITALS: BP 124/64
[2022-01-24 02:40] LABS: % ATYL 11 % (0-0); % BANDS 2 % (0-9); % EOS 1 % (0-5); % LYMPHS 10 % (24-48); % METAS 1 % (0-0); % MONOS 3 % (0-10); % SEGS 72 % (35-66)
[2022-01-24 02:41] LABS: PLT ESTIMATE ADEQUATE (ADEQUATE)
--- NOTE | 2022-01-24 19:58 | EKG ---
[address] [address] Test Date: 2022-01-23 Test Time: 21:07:22 Pat Name: RADHA RIVERA Department: Room: Gender: M Sheeter Helper: JACINTA : 1970 Requested By: MARGOTH TERRAZAS Order Number: [id number] Reading MD: Cayetano Benton Measurements Intervals [place] Rate: 65 P: 24 ID: 156 QRS: -31 QRSD: 82 T: -24 QT: 362 QTc: 377 Interpretive Statements SINUS RHYTHM ABNORMAL LEFT AXIS DEVIATION QRS(T) CONTOUR ABNORMALITY CONSISTENT WITH POSSIBLE INFERIOR INFARCT AGE UNDETERMINED Electronically Signed On 01-25-2022 15:00:13 CDT by Cayetano Benton
== END 2022-01-24 02:14 | disposition home or self-care (01) ==
LOC: ER 20:50
DX: R07.89 Other chest pain (principal); I25.10 Atherosclerotic heart disease of native coronary artery without angina pectoris; I10 Essential (primary) hypertension; E78.00 Pure hypercholesterolemia, unspecified; E11.9 Type 2 diabetes mellitus without complications; F41.9 Anxiety disorder, unspecified; K21.9 Gastro-esophageal reflux disease without esophagitis; I25.2 Old myocardial infarction; Z87.442 Personal history of urinary calculi; Z88.8 Allergy status to other drugs, medicaments and biological substances
CPT/HCPCS: 36415; 71045; 80053; 83735; 84484; 85007; 85025; 85379; 85610; 85730; 93005; 99285